=== PATIENT | male | born 1960 | race Caucasian/White ===

== ENCOUNTER 2020-06-01 16:13 | Emergency (ER) | payer OTHER ==
[~2020-06-01] VITALS: Ht 182.9 cm; Wt 109.1 kg
[~2020-06-01 16:13] MED LIST: ALPR0.5T PO; DEXT5TAB27 PO; SILD50TA PO; TRAM50TA PO
--- NOTE | 2020-06-01 16:21 | PHYS DOC ---
Past History Past Medical History: Anxiety, Arthritis, Depression, Hypertension, Other (SHARON POE APRN) Past Surgical History: Other (SHARON POE APRN) Alcohol Use: Occasionally Drug Use: None (SHARON POE APRN) Adult General Chief Complaint Chief Complaint: LOWER EXT PAIN HPI HPI Patient is a 59-year-old male presents to the emergency department complaining of bilateral foot gout exacerbation pain for the past 5 days. Patient states that he has never been diagnosed with gout, however he had a flareup earlier this year in which he took ibuprofen and the pain went away. Patient denies any other physical complaints or physical symptoms other than bilateral foot pain. Patient denies abdominal pain, pain with urination, back pain. Patient denies seeing blood in his urine.Patient denies chest pain, shortness of breath, cough, nasal congestion or chest congestion, recent fever or chills, recent exposure to the COVID-19 virus, loss of taste or loss of smell. Patient states no one else living in his home is having the same symptoms as he. Patient states he does not take any prescription medications at home, is generally healthy, has no allergies to medications. Patient states he does not smoke, drinks occasionally/socially with friends, no illicit drug use. (SHARON POE APRN) Review of Systems Review of Systems 14 body systems of review of systems have been reviewed. See HPI for pertinent positives and negative responses, otherwise all other systems are negative, nonpertinent or noncontributory. (SHARON POE APRN) Allergies Allergies Allergies Coded Allergies Type Severity Reaction Last Updated Verified No Known Drug Allergies 06/01/20 No (SHARON POE APRN) Physical Exam Physical Exam Constitutional: Well developed, well nourished, no acute distress, non-toxic appearance. HENT: Normocephalic, atraumatic, bilateral external ears normal, oropharynx moist, no oral exudates, nose normal. Eyes: PERRLA, EOMI, conjunctiva normal, no discharge. Neck: Normal range of motion, no tenderness, supple, no stridor. Cardiovascular:Heart rate regular rhythm, no murmur Lungs & Thorax: Bilateral breath sounds clear to auscultation Abdomen: Bowel sounds normal, soft, no tenderness, no masses, no pulsatile masses. Skin: Warm, dry, no erythema, no rash. Back: No tenderness, no CVA tenderness. Extremities: No tenderness, no cyanosis, no clubbing, ROM intact, no edema. Except for bilateral feet, erythema to bilateral great toes and bilateral medial inferior ankle area. Increased pain to palpation, distal cap refill less than 2 seconds, +2 dorsalis pedis pulses, no warmth to touch over erythematous areas. No crepitus appreciated. No deformity appreciated. No edema appreciated. Neurologic: Alert and oriented X 3, normal motor function, normal sensory function, no focal deficits noted. Psychologic: Affect normal, judgement normal, mood normal. (SHARON POE APRN) EKG EKG [] (SHARON POE APRN) Radiology/Procedures Radiology/Procedures PATIENT: DEVONTE NOVA ACCOUNT: [id number] : 1960 LOCATION: ER AGE: 59 SEX: M EXAM STATUS: REG ER ORD. PHYSICIAN: SHARON POE APRN REASON: SWELLING GREAT TOE BILATERAL FEET PROCEDURE: FOOT BILAT 3V EXAM: 3 views of both feet DATE: 06/01/2020 6:20 PM INDICATION: Reason: SWELLING GREAT TOE BILATERAL FEET / Spl. Instructions: / History: COMPARISON: No Prior FINDINGS: Left foot: Old/healed fracture distal fifth metatarsal shaft. Old/healed posterior malleolar fracture is seen. No acute fracture or dislocation. Incidentally noted medial bipartite hallux MTP sesamoid. Right foot: Hallux MTP joint degenerative changes are seen. Calcaneal enthesopathy. No evidence of acute fracture or dislocation. IMPRESSION: 1. No acute fracture or dislocation. 2. Right hallux MTP joint degenerative changes. 3. Old healed fractures left foot/ankle. Electronically signed by: Rojas Avalos MD (06/01/2020 7:26 PM) [facility] DICTATED AND SIGNED BY: ROJAS AVALOS MD DATE: 06/01/201922 CC: SHARON POE APRN; JENIFER MOBLEY ~MTH0 0 (SHARON POE APRN) Heart Score C/O Chest Pain: No Risk Factors: Risk Factors: DM, Current or recent (<one month) smoker, HTN, HLP, family history of CAD, obesity. Risk Scores: Risk Factors: DM, Current or recent (<one month) smoker, HTN, HLP, family history of CAD, obesity. (SHARON POE APRN) Course & Med Decision Making Course & Med Decision Making Pertinent Labs and Imaging studies reviewed. (See chart for details) 59-year-old male, vital signs reviewed, presents to the emergency department complaining of bilateral foot pain/gout pain. Physical examination was consistent with gouty arthritis. Patient had not been diagnosed or worked up for gouty arthritis, ED planning serum labs to include CBC/BMP/uric acid level/urinalysis assay/bilateral foot x-rays. Uric acid level elevated, patient's sodium slightly low at 133, patient was given 1 L normal saline, patient was also given 30 mg IV Toradol for pain, upon reevaluation of the patient, patient reports adequate pain relief stating that his pain is almost gone. Patient's urine assay concerning for acute cystitis, patient was unaware that he would have a urinary tract infection as he has no symptoms. Discussed with patient will start on colchicine x1 month patient is to follow-up with primary care for ongoing colchicine treatment, will give indomethacin for pain, will give 1 dose IM Depo-Medrol for steroid therapy. Will start on Keflex for urinary tract infection. Discussed with patient findings of infected urine, uric acid level elevated, discussed with patient diet changes, decrease alcohol, patient gave verbal understanding of discharge home instructions, ice, elevate, rest painful joints, antibiotic regimen, colchicine use, indomethacin use. Follow-up with PCP soon, return to ER precautions or concerns, discharged home without incident. Differential diagnosis include pseudogout, rheumatoid arthritis, Osteoarthritis,Trauma,Sarcoid,Bursitis,Psoriasis,Tamara's syndrome,Cellulitis,Septic arthritis (SHARON POE APRN) Course & Med Decision Making I oversaw care of patient while in ER and discussed case with [employer]IST. I agree to note and plan of care as discussed. I advised to treat pt as complicated UTI given age and fact that he is male Electronicallt signed, Ananda Fonseca DO (ANANDA FONSECA DO) [place] Disclaimer Dragon Disclaimer This electronic medical record was generated, in whole or in part, using a voice recognition dictation system. (ADAMOVICH,KATERYNA J[employer] AND [employer]TURE REPAIRER) Departure Departure: Impression: Primary Impression: Gout attack Additional Impression: Urinary tract infection Disposition: 01 DC HOME SELF CARE/HOMELESS Condition: GOOD Referrals: PCP,UNKNOWN (PCP) Patient Instructions: Gout, Urinary Tract Infection Additional Instructions: You have been diagnosed with gouty arthritis of both your feet. Your uric acid level was elevated today in the emergency department. We have discussed therapies to help alleviate your pain and symptoms which include resting the affected joint, ice, elevation, diet modifications to include avoiding foods high in purine such as anchovies, organ meats, mushrooms, and spinach. Weight reduction and alcohol intake reduction also assist in managing gouty arthritis flareups in pain. You had indicated you have a history of high blood pressure that you do not take medications for, I encourage you to follow-up with your primary care physician and starting on a nondiuretic type high blood pressure medication as this will also help manage your gouty arthritis flareups in pain. Please see your doctor soon as we discussed, return to the emergency department for worsening symptoms or other concerns. EMERGENCY DEPARTMENT GENERAL DISCHARGE INSTRUCTIONS Thank you for coming to [facility] (ED) today and trusting us with you care. We trust that you had a positivie experience in our Emergency Department. If you wish to speak to the department management, you may call the director at [phone]. YOUR FOLLOW UP INSTRUCTIONS ARE FOLLOWS: 1. Do you have a private Doctor? If you do not have a private doctor, please ask for a resource list of physicians or clinics that may be able to assist you with follow up care. 2. The Emergency Physician has interpreted your x-rays. The X-Ray specialist will also review them. If there is a change in the findings, you will be notified in 48 hours when at all possible. 3. A lab test or culture has been done, your results will be reviewed and you will be notified if you need a change in treatment. ADDITIONAL INSTRUCTIONS AND INFORMATION: 1. Your care today has been supervised by a physician who is specially trained in emergency care. Many problems require more than one evaluation for a complete diagnosis and treatment. We recommend that you schedule your follow up appointment as recommended to ensure complete treatment of you illness or injury. If you are unable to obtain follow up care and continue to have a problem, or if your condition worsens, we recommend that you return to the ED. 2. We are not able to safely determine your condition over the phone nor are we able to give sound medical advice over the phone. For these safety reasons, if you call for medical advice we will ask you to come to the ED for further evaluation. 3. If you have any questions regarding these discharge instructions please call the ED at [phone]. SAFETY INFORMATION: In the interest of safety, wellness, and injury prevention; we encourage you to wear your sealbelt, if you smoke; quite smoking, and we encourage family to use a protective helmet for bicycling and other sporting events that present an increased risk for head injury. IF YOUR SYMPTOMS WORSEN OR NEW SYMPTOMS DEVELOP, OR YOU HAVE CONCERNS ABOUT YOUR CONDITION; OR IF YOUR CONDITION WORSENS WHILE YOU ARE WAITING FOR YOUR FOLLOW UP APPOINTMENT; EITHER CONTACT YOUR PRIMARY CARE DOCTOR, THE PHYSICIAN WHOSE NAME AND NUMBER YOU WERE GIVEN, OR RETURN TO THE ED IMMEDIATELY. Scripts Colchicine (Colchicine) 0.6 Mg Tablet 1 TAB PO DAILY for gout pain for 30 Days, #30 TAB 0 Refills Prov: SHARON POE APRN 06/01/20 Indomethacin (INDOMETHACIN) 50 Mg Capsule 1 CAP PO TID for GOUT ARTHRITIS for 10 Days, #30 CAP with food 50 mg by mouth 3 times a day until pain is tolerable then decrease dose by 1 or 2 tablets until pain is relieved then no longer needed. Prov: SHARON POE APRN 06/01/20 Cephalexin (CEPHALEXIN) 500 Mg Tablet 1 TAB PO BID for UTI for 7 Days, #14 TAB 0 Refills Prov: SHARON POE APRN 06/01/20 Problem Qualifiers Primary Impression: Gout attack Gout site: foot Gout etiology: unspecified cause Laterality: unspecified laterality Qualified Codes: M10.9 - Gout, unspecified Additional Impression: Urinary tract infection Urinary tract infection type: site unspecified Hematuria presence: without hematuria Qualified Codes: N39.0 - Urinary tract infection, site not specified SHARON POE APRN Jun 01, 2020 16:21 ANANDA FONSECA DO Jun 01, 2020 23:23
[2020-06-01] MEDS ORDERED: KETOROLAC 30 MG/ML VIAL. IVP ONE (17:00)
[2020-06-01] MEDS ORDERED: IV NORMAL SALINE 1,000ML 1,000 ML IV ONE (17:00)
[2020-06-01 17:44] LABS: BASO % 0 % (0-3); EOS # 0.1 x10^3/uL (0.0-0.7); EOS % 1 % (0-3); HEMATOCRIT 43.1 % (39.0-53.0); HEMOGLOBIN 14.7 g/dL (13.0-17.5); LYMPH # 1.6 x10^3/uL (1.0-4.8); LYMPH % 16 % (24-48); MEAN CORPUSCULAR HEMOGLOBIN 32 pg (25-35); MEAN CORPUSCULAR HGB CONC 34 g/dL (31-37); MEAN CORPUSCULAR VOLUME 93 fL (79-100); MONO # 1.3 x10^3/uL (0.0-1.1); MONO % 13 % (0-9); NEUT # 7.5 x10^3uL (1.8-7.7); NEUT % 71 % (31-73); PLATELET COUNT 339 x10^3/uL (140-400); RED BLOOD COUNT 4.66 x10^6/uL (4.30-5.70); RED CELL DISTRIBUTION WIDTH 13.4 % (11.5-14.5); WHITE BLOOD COUNT 10.6 x10^3/uL (4.0-11.0)
[2020-06-01 17:48] LABS: CALCIUM 9.2 mg/dL (8.5-10.1); CREATININE 1.4 mg/dL (0.7-1.3); GFR 51.9; POTASSIUM 4.2 mmol/L (3.5-5.1)
[2020-06-01 17:51] LABS: URIC ACID 8.2 mg/dL (3.5-7.2)
[2020-06-01 18:50] LABS: CLARITY,URINE HAZY; COLOR,URINE YELLOW
[2020-06-01 18:51] LABS: BACTERIA,URINE MOD /HPF (0-FEW); BILIRUBIN,URINE NEG (NEG); GLUCOSE,URINE NEG (NEG); NITRITE,URINE POS (NEG); SQUAMOUS EPITHELIAL CELL,UR FEW /LPF; UROBILINOGEN,URINE 0.2 mg/dL (0.2 mg/dL); WBC,URINE >40 /HPF (0-4)
[2020-06-01] MEDS ORDERED: HYDROcodone/APAP 5/325MG 1 TAB TABLET PO ONE (19:15)
[2020-06-01 19:17] VITALS: BP 161/102
[2020-06-01] MEDS ORDERED: CEPH500T PO (19:25)
[2020-06-01] MEDS ORDERED: INDO50CA15 PO (19:25)
[2020-06-01] MEDS ORDERED: COLC0.6T45 PO (19:25)
--- NOTE | 2020-06-01 19:28 | RAD ---
EXAM: 3 views of both feet DATE: 06/01/2020 6:20 PM INDICATION: Reason: SWELLING GREAT TOE BILATERAL FEET / Spl. Instructions: / History: COMPARISON: No Prior FINDINGS: Left foot: Old/healed fracture distal fifth metatarsal shaft. Old/healed posterior malleolar fracture is seen. No acute fracture or dislocation. Incidentally noted medial bipartite hallux MTP sesamoid. Right foot: Hallux MTP joint degenerative changes are seen. Calcaneal enthesopathy. No evidence of acute fracture or dislocation. IMPRESSION: 1. No acute fracture or dislocation. 2. Right hallux MTP joint degenerative changes. 3. Old healed fractures left foot/ankle. Electronically signed by: Rojas Tracey MD (06/01/2020 7:26 PM) [facility]
[2020-06-01] MEDS ORDERED: methylPREDNISolone ACETATE 80 MG/ML VIAL. IM ONE (19:30)
== END 2020-06-01 19:45 | disposition home or self-care (01) ==
LOC: ER 16:13
DX: M10.9 Gout, unspecified (principal); N39.0 Urinary tract infection, site not specified; F41.9 Anxiety disorder, unspecified; M19.90 Unspecified osteoarthritis, unspecified site; F32.9 Major depressive disorder, single episode, unspecified; I10 Essential (primary) hypertension
CPT/HCPCS: 36415; 73630; 80048; 81001; 84550; 85025; 87086; 96361; 96372; 96374; 99285; J1040; J1885; J7030; 87077; 87186; 99284-25